=== PATIENT | female | born 1955 | race Caucasian/White ===

== ENCOUNTER 2016-07-25 13:14 | Emergency (ER) | payer MEDICARE ==
[~2016-07-25] VITALS: Ht 165.1 cm; Wt 99.8 kg
[2016-07-25] MEDS ORDERED: RISP0.2518 PO (13:46)
[2016-07-25] MEDS ORDERED: INSU500V SQ (13:46)
[2016-07-25] MEDS ORDERED: ALBU18HF INH (13:46)
[2016-07-25] MEDS ORDERED: DIAZ10TA PO (13:46)
[2016-07-25] MEDS ORDERED: INSU100V13 SQ ×2 (13:46)
[2016-07-25] MEDS ORDERED: ATOR80TA75 PO (13:46)
[2016-07-25] MEDS ORDERED: ALBU4TAB PO (13:46)
[2016-07-25] MEDS ORDERED: SITA25TA PO (13:46)
[2016-07-25] MEDS ORDERED: ASPIRIN 81 MG TABLET CHEW ONE (13:56)
[2016-07-25] MEDS ORDERED: ASPIRIN 81 MG TABLET CHEW PO ONE (14:00)
[2016-07-25 14:41] LABS: BLOOD UREA NITROGEN 26 mg/dL (7-18)
[2016-07-25 14:48] LABS: IS PT STATUS REG ER OR PRE ER? YES
[2016-07-25] MEDS ORDERED: HYDROcodone/APAP 5/325 TABLET ONE (14:59)
[2016-07-25] MEDS ORDERED: IBUPROFEN 200 MG TABLET ONE (14:59)
[2016-07-25] MEDS ORDERED: IBUPROFEN 200 MG TABLET PO ONE (15:00)
[2016-07-25] MEDS ORDERED: HYDROcodone/APAP 5/325 TABLET PO ONE (15:00)
[2016-07-25 17:01] VITALS: BP 154/62
== END 2016-07-25 17:03 | disposition home or self-care (01) ==
LOC: ED 14:46
DX: G89.11 Acute pain due to trauma (principal); M79.601 Pain in right arm; W19.XXXA Unspecified fall, initial encounter; Y93.17 Activity, water skiing and wake boarding; Y99.8 Other external cause status; Y92.9 Unspecified place or not applicable
CPT/HCPCS: 36415; 80048; 82040; 83880; 84484; 85025; 93005